=== PATIENT | male | born 1960 | race Caucasian/White ===

== ENCOUNTER 2016-08-29 11:47 | Emergency (ER) | payer BC ==
[~2016-08-29] VITALS: Ht 182.9 cm; Wt 114.5 kg
[~2016-08-29 11:47] MED LIST: COLACE100 MG PO; LIPITOR40 MG PO; PERCOCET 5/31 TABLET PO
[2016-08-29] MEDS ORDERED: FIORICET 50-301 EACH PO (13:13)
[2016-08-29] MEDS ORDERED: ZOFRAN ODT4 MG PO (13:13)
[2016-08-29 13:33] VITALS: BP 141/87
== END 2016-08-29 13:38 | disposition home or self-care (01) ==
LOC: EME 11:47
DX: S09.90XA Unspecified injury of head, initial encounter (principal); S00.83XA Contusion of other part of head, initial encounter; F07.81 Postconcussional syndrome; W22.09XA Striking against other stationary object, initial encounter; Y92.812 Truck as the place of occurrence of the external cause
CPT/HCPCS: 99281; 99283